=== PATIENT | female | born 1940 | race Caucasian/White ===

== ENCOUNTER 2019-03-02 09:26 | Inpatient (IN) | payer MEDICARE, BC ==
[2019-03-02] MEDS ORDERED: Sodium Chloride 0.9% 10 ML Syringe FLUSH PRN ×2 (10:32→16:50)
--- NOTE | 2019-03-02 11:57 | CRLCR ---
INDICATION: Pneumonia. COMPARISON: 02/28/[address], 02/26/2019 chest x-ray. TECHNIQUE: Two views of the chest. FINDINGS: Patchy right middle lobe and left midlung opacities consistent with pneumonia are similar to prior chest CT accounting for differences in technique. Small right pleural effusion is again noted. No pneumothorax. Cardiomediastinal silhouette is within normal limits. IMPRESSION: Bilateral opacities likely representing pneumonia, similar to prior chest CT. Persistent small right pleural effusion. Dictated by Calixto Pinon MD @ Mar 02 2019 11:47AM Signed by Dr. Calixto Pinon @ Mar 02 2019 11:56AM
[2019-03-02] MEDS ORDERED: Levofloxacin/Dextrose 5%-Water 750 MG in Premix Bag 1 BAG IV ONE (12:01)
--- NOTE | 2019-03-02 12:18 | EDM.PDOC ---
ED HPI GENERAL MEDICAL PROBLEM - General Chief Complaint: Respiratory Problem Stated Complaint: SOB Time Seen by Provider: 03/02/19 10:21 Source of Information: Reports: Patient History Limitations: Reports: Physical Impairment (+++) - History of Present Illness INITIAL COMMENTS - FREE TEXT/NARRATIVE: This lady is here for possible worsening of pneumonia. She was diagnosed on Tuesday at [facility] in [place]. She received an injjection of Rocephin and was put on doxycycline. The following day she had a chest CT that showed a dense right middle lobe infiltrate also infiltrate in the inferior part of the right upper lobe and well as the lingula. Last night she had a fever up to 101.5. She called her doctor today and was told to come into the emergency department since her pneumonia may be getting worse. She's coughing a lot she feels a little bit short of breath and quite anxious. - Related Data Allergies Allergy/AdvReac Type Severity Reaction Status Date / Time atorvastatin [From Lipitor] Allergy Muscle Verified 03/02/19 09:37 Aches erythromycin base Allergy Rash Verified 03/02/19 09:37 morphine Allergy Rash Verified 03/02/19 09:37 nitrofurantoin Allergy Rash Verified 03/02/19 09:37 [From Macrodantin] Penicillins Allergy Rash Verified 03/02/19 09:37 simvastatin [From Zocor] Allergy Muscle Verified 03/02/19 09:37 Aches Sulfa (Sulfonamide Allergy Rash Verified 03/02/19 09:37 Antibiotics) Home Meds: Home Meds Aspirin [Halfprin] 1 tab PO DAILY 03/02/19 [History] Calcium Carbonate/Vitamin D3 [Caltrate 600 Plus D3 Tablet] 1 tab PO DAILY [History] Codeine Phosphate/Guaifenesin [Guaifen-Codeine 100-10 mg/5 ml] 10 ml PO BEDTIME 03/02/19 [History] Doxycycline [Vibramycin] 1 tab PO BID 03/02/19 [History] Estrogens, Conjugated [Premarin Vaginal Crm] 1 applic TOP DAILY PRN 03/02/19 [ History] Fluticasone Propionate [Flonase Allergy Relief] 2 spray DALILA DAILY 03/02/19 [ History] Multivit with Calcium,Iron,Min [One Daily Women's] 1 tab PO DAILY 03/02/19 [ History] Past Medical History HEENT History: Reports: Cataract Respiratory History: Reports: Pneumonia, Recurrent 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: Musculoskeletal History: Reports: RA Oncologic (Cancer) History: Reports: Squamous Cell Carcinoma - Infectious Disease History Infectious Disease History: Reports: Chicken Pox, Measles, Mumps, Pertussis ( Whooping Cough), Shingles - Past Surgical History HEENT Surgical History: Reports: Cataract Surgery, Eye Surgery Female Surgical History: Reports: Hysterectomy, Salpingo-Oophorectomy Musculoskeletal Surgical History: Reports: Knee Replacement Other Musculoskeletal Surgeries/Procedures:: foot fracture, and toe fracture, right knee replacement Social & Family History - Tobacco Use Smoking Status *Q: Never Smoker - Caffeine Use Caffeine Use: Reports: Coffee - Alcohol Use Date of Last Drink: 02/21/19 Time of Last Drink: 20:00 - Recreational Drug Use Recreational Drug Use: No ED ROS GENERAL - Review of Systems Review Of Systems: See Below Constitutional: Reports: Fever, Chills, Weakness HEENT: Reports: No Symptoms Respiratory: Reports: Shortness of Breath, Cough, Sputum Cardiovascular: Reports: No Symptoms Endocrine: Reports: No Symptoms GI/Abdominal: Reports: No Symptoms : Reports: No Symptoms Musculoskeletal: Reports: No Symptoms Skin: Reports: No Symptoms Neurological: Reports: No Symptoms Psychiatric: Reports: No Symptoms ED EXAM, GENERAL - Physical Exam Exam: See Below Exam Limited By: No Limitations General Appearance: Alert, WD/WN, Mild Distress (She is wearing a mask and coughs very frequently) Eye Exam: Bilateral Eye: Normal Inspection Throat/Mouth: Normal Oropharynx Head: Atraumatic Neck: Normal Inspection Respiratory/Chest: No Respiratory Distress, Other (Some decreased breath sounds over the right middle lobe otherwise lungs generally fairly clear) Cardiovascular: Normal Peripheral Pulses, Regular Rate, Rhythm, No Murmur GI/Abdominal: Soft, Non-Tender Back Exam: Normal Inspection Extremities: Normal Inspection Neurological: Alert, Oriented Course - Vital Signs Last Recorded V/S: Last Vital Signs Temp 36.9 C 03/02/19 12:20 Pulse 91 03/02/19 13:31 Resp 18 03/02/19 13:31 BP 167/66 H 03/02/19 13:31 Pulse Ox 93 L 03/02/19 13:31 - Orders/Labs/Meds Orders: Active Orders 24 hr Category Date Time Status Patient Status Manage Transfer [TRANSFER] Routine ADT 03/02/19 13:19 Active CULTURE BLOOD [BC] Urgent Lab 03/02/19 10:45 Received CULTURE BLOOD [BC] Urgent Lab 03/02/19 10:45 Received CULTURE RESPIRATORY + SMEAR [RM] Stat Lab 03/02/19 13:30 Results Sodium Chloride 0.9% [Saline Flush] Med 03/02/19 10:32 Active 10 ml FLUSH ASDIRECTED PRN Blood Culture x2 Reflex Set [OM.PC] Urgent Oth 03/02/19 10:39 Ordered Saline Lock Insert [OM.PC] Urgent Oth 03/02/19 10:37 Ordered Resuscitation Status Routine Resus Stat 03/02/19 13:21 Ordered Medication Orders Sodium Chloride (Saline Flush) 10 ml FLUSH ASDIRECTED PRN PRN Reason: Keep Vein Open Last Admin: 03/02/19 10:51 Dose: 10 ml Labs: Laboratory Tests 03/02/19 03/02/19 03/02/19 Range/Units 10:45 10:45 10:45 WBC 8.6 (4.5-11.0) K/uL RBC 4.17 (3.30-5.50) M/uL Hgb 12.5 (12.0-15.0) g/dL Hct 38.8 (36.0-48.0) % MCV 93 (80-98) fL MCH 30 (27-31) pg MCHC 32 (32-36) % Plt Count 378 (150-400) K/uL Neut % (Auto) 72 H (36-66) % Lymph % (Auto) 13 L (24-44) % [place] % (Auto) 14 H (2-6) % Eos % (Auto) 1 L (2-4) % Baso % (Auto) 0 (0-1) % Sodium 136 L (140-148) mmol/L Potassium 3.7 (3.6-5.2) mmol/L Chloride 101 (100-108) mmol/L Carbon Dioxide 26 (21-32) mmol/L Anion Gap 12.7 (5.0-14.0) mmol/L BUN 9 (7-18) mg/dL Creatinine 0.7 (0.6-1.0) mg/dL Est Cr Clr Drug Dosing 62.15 mL/min Estimated GFR (MDRD) > 60 (>60) Glucose 100 (74-106) mg/dL Lactic Acid 1.6 (0.4-2.0) mmol/L Calcium 9.4 (8.5-10.1) mg/dL Total Bilirubin 0.4 (0.2-1.0) mg/dL AST 34 (15-37) U/L ALT 70 (12-78) U/L Alkaline Phosphatase 71 (46-116) U/L Total Protein 7.3 (6.4-8.2) g/dL Albumin 2.7 L (3.4-5.0) g/dL Globulin 4.6 H (2.3-3.5) g/dL Albumin/Globulin Ratio 0.6 L (1.2-2.2) Meds: Medications Generic Name Dose Route Start Last Admin Trade Name Freq PRN Reason Stop Dose Admin Sodium Chloride 10 ml 03/02/19 10:32 03/02/19 10:51 Saline Flush FLUSH 10 ml ASDIRECTED PRN Administration Keep Vein Open Discontinued Medications Generic Name Dose Route Start Last Admin Trade Name Freq PRN Reason Stop Dose Admin Levofloxacin/Dextrose 750 mg/ 150 mls @ 100 mls/hr 03/02/19 12:01 03/02/19 12 :13 Premix IV 03/02/19 13:30 100 mls/hr ONETIME ONE Administration Meropenem 1 gm/ Sodium 50 mls @ 100 mls/hr 03/02/19 12:30 03/02/19 13:57 Chloride IV 03/02/19 12:59 100 mls/hr ONETIME ONE Administration - Radiology Interpretation Free Text/Narrative:: Radiology report was noted x-rays were compared with the previous x-rays and done earlier this week. No significant progressionCT - Re-Assessments/Exams Free Text/Narrative Re-Assessment/Exam: 03/02/19 16:[address] Hernandez patient received ertapenem 1 g and Levaquin 1 g IV. There was some difficulty finding a room for her but that has been procured and she'll be moved up to [facility] shortly Departure - Departure Time of Disposition: 16:03 Disposition: Admitted As Inpatient 68 Condition: Fair Clinical Impression: Bilateral pneumonia - Discharge Information Referrals: PCP,None [Primary Care Provider] - Forms: ED Department Discharge - My Orders Last 24 Hours: My Active Orders 03/02/19 10:32 Sodium Chloride 0.9% [Saline Flush] 10 ml FLUSH ASDIRECTED PRN 03/02/19 10:37 Saline Lock Insert [OM.PC] Urgent 03/02/19 10:39 Blood Culture x2 Reflex Set [OM.PC] Urgent 03/02/19 10:45 CULTURE BLOOD [BC] Urgent CULTURE BLOOD [BC] Urgent 03/02/19 13:30 CULTURE RESPIRATORY + SMEAR [RM] Stat - Assessment/Plan Last 24 Hours: My Active Orders 03/02/19 10:32 Sodium Chloride 0.9% [Saline Flush] 10 ml FLUSH ASDIRECTED PRN 03/02/19 10:37 Saline Lock Insert [OM.PC] Urgent 03/02/19 10:39 Blood Culture x2 Reflex Set [OM.PC] Urgent 03/02/19 10:45 CULTURE BLOOD [BC] Urgent CULTURE BLOOD [BC] Urgent 03/02/19 13:30 CULTURE RESPIRATORY + SMEAR [RM] Stat
--- NOTE | 2019-03-02 13:25 | PCM.HP.2 ---
H&P History of Present Illness - General Date of Service: 03/02/19 Admit Problem/Dx: Admission Diagnosis/Problem Admission Diagnosis/Problem Pneumonia Source of Information: Patient, Family, Provider, RN Notes Reviewed History Limitations: Reports: No Limitations - History of Present Illness Initial Comments - Free Text/Narative: Ms. Escobar is a 78-year-old woman who was admitted through the emergency department with cough and shortness of breath secondary to bilateral pneumonia. She became sick about a week ago, 4 days ago presented to her primary care physician. Chest x-ray at that time showed evidence of pneumonia. She was given IM Rocephin and started on doxycycline [address] scan was obtained 2 days ago for follow-up and showed evidence of bilateral pneumonia. On initial assessment her white blood cell count was elevated. She presented to the emergency department today because of persistent shortness of breath, cough, and fever. Chest x-ray obtained today shows evidence of bilateral infiltrates, white blood cell count is within normal range. Blood and sputum cultures have been obtained and she is been started on IV levofloxacin and meropenem in the emergency department because of failed outpatient management of pneumonia. - Related Data Allergies/Adverse Reactions: Allergies Allergy/AdvReac Type Severity Reaction Status Date / Time atorvastatin [From Lipitor] Allergy Muscle Verified 03/02/19 09:37 Aches erythromycin base Allergy Rash Verified 03/02/19 09:37 morphine Allergy Rash Verified 03/02/19 09:37 nitrofurantoin Allergy Rash Verified 03/02/19 09:37 [From Macrodantin] Penicillins Allergy Rash Verified 03/02/19 09:37 simvastatin [From Zocor] Allergy Muscle Verified 03/02/19 09:37 Aches Sulfa (Sulfonamide Allergy Rash Verified 03/02/19 09:37 Antibiotics) Home Medications: Home Meds Aspirin [Halfprin] 1 tab PO DAILY 03/02/19 [History] Calcium Carbonate/Vitamin D3 [Caltrate 600 Plus D3 Tablet] 1 tab PO DAILY [History] Codeine Phosphate/Guaifenesin [Guaifen-Codeine 100-10 mg/5 ml] 10 ml PO BEDTIME 03/02/19 [History] Doxycycline [Vibramycin] 1 tab PO BID 03/02/19 [History] Estrogens, Conjugated [Premarin Vaginal Crm] 1 applic TOP DAILY PRN 03/02/19 [ History] Fluticasone Propionate [Flonase Allergy Relief] 2 spray DALILA DAILY 03/02/19 [ History] Multivit with Calcium,Iron,Min [One Daily Women's] 1 tab PO DAILY 03/02/19 [ History] Past Medical History HEENT History: Reports: Cataract Respiratory History: Reports: Pneumonia, Recurrent 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: Musculoskeletal History: Reports: RA Oncologic (Cancer) History: Reports: Squamous Cell Carcinoma - Infectious Disease History Infectious Disease History: Reports: Chicken Pox, Measles, Mumps, Pertussis ( Whooping Cough), Shingles - Past Surgical History HEENT Surgical History: Reports: Cataract Surgery, Eye Surgery Female Surgical History: Reports: Hysterectomy, Salpingo-Oophorectomy Musculoskeletal Surgical History: Reports: Knee Replacement Other Musculoskeletal Surgeries/Procedures:: foot fracture, and toe fracture, right knee replacement Social & Family History - Tobacco Use Smoking Status *Q: Never Smoker - Caffeine Use Caffeine Use: Reports: Coffee - Alcohol Use Date of Last Drink: 02/21/19 Time of Last Drink: 20:00 - Recreational Drug Use Recreational Drug Use: No H&P Review of Systems - Review of Systems: Review Of Systems: See Below General: Reports: Fever, Chills, Malaise, Weakness, Diaphoresis Pulmonary: Reports: Shortness of Breath, Cough, Sputum, Hemoptysis. Denies: Wheezing, Pleuritic Chest Pain Cardiovascular: Reports: Dyspnea on Exertion. Denies: Chest Pain, Palpitations , Orthopnea, PND, Edema, Lightheadedness Gastrointestinal: Reports: No Symptoms Genitourinary: Reports: No Symptoms Musculoskeletal: Reports: No Symptoms Skin: Reports: No Symptoms Psychiatric: Reports: No Symptoms Neurological: Reports: No Symptoms Hematologic/Lymphatic: Reports: No Symptoms Immunologic: Reports: No Symptoms Exam - Exam Exam: See Below - Vital Signs Vital Signs: Last Vital Signs Temp 98.4 F 03/02/19 12:20 Pulse 71 03/02/19 12:20 Resp 20 03/02/19 12:20 BP 147/76 H 03/02/19 12:20 Pulse Ox 95 03/02/19 12:20 Weight: 130 lb - Exam Quality Assessment: DVT Prophylaxis General: Alert, Oriented, Cooperative, Moderate Distress HEENT: Conjunctiva Clear, Hearing Intact, Normal Nasal Septum, Posterior Pharynx Clear, Pupils Equal. No: Mucosa Moist & [place] Neck: Supple, Trachea Midline, +2 Carotid Pulse wo Bruit Lungs: Crackles, Rhonchi. No: Rub, Stridor, Wheezing Cardiovascular: Regular Rate, Regular Rhythm, Normal S1, Normal S2. No: Systolic Murmur, Diastolic Murmur GI/Abdominal Exam: Soft, Non-Tender, No Organomegaly, No Distention Back Exam: Normal Inspection, Full Range of Motion Extremities: Non-Tender, No Pedal Edema Skin: Warm, Dry, Intact Neurological: Cranial Nerves Intact, Strength Equal Bilateral, Normal Speech, Normal Tone, Sensation Intact. No: Focal Deficit Neuro Extensive - Mental Status: Alert, Oriented x3, Normal Mood/Affect, Normal Cognition, Memory Intact - Patient Data Lab Results Last 24 hrs: Laboratory Results - last 24 hr 03/02/19 03/02/19 03/02/19 Range/Units 10:45 10:45 10:45 WBC 8.6 (4.5-11.0) K/uL RBC 4.17 (3.30-5.50) M/uL Hgb 12.5 (12.0-15.0) g/dL Hct 38.8 (36.0-48.0) % MCV 93 (80-98) fL MCH 30 (27-31) pg MCHC 32 (32-36) % Plt Count 378 (150-400) K/uL Neut % (Auto) 72 H (36-66) % Lymph % (Auto) 13 L (24-44) % [place] % (Auto) 14 H (2-6) % Eos % (Auto) 1 L (2-4) % Baso % (Auto) 0 (0-1) % Sodium 136 L (140-148) mmol/L Potassium 3.7 (3.6-5.2) mmol/L Chloride 101 (100-108) mmol/L Carbon Dioxide 26 (21-32) mmol/L Anion Gap 12.7 (5.0-14.0) mmol/L BUN 9 (7-18) mg/dL Creatinine 0.7 (0.6-1.0) mg/dL Est Cr Clr Drug Dosing 62.15 mL/min Estimated GFR (MDRD) > 60 (>60) Glucose 100 (74-106) mg/dL Lactic Acid 1.6 (0.4-2.0) mmol/L Calcium 9.4 (8.5-10.1) mg/dL Total Bilirubin 0.4 (0.2-1.0) mg/dL AST 34 (15-37) U/L ALT 70 (12-78) U/L Alkaline Phosphatase 71 (46-116) U/L Total Protein 7.3 (6.4-8.2) g/dL Albumin 2.7 L (3.4-5.0) g/dL Globulin 4.6 H (2.3-3.5) g/dL Albumin/Globulin Ratio 0.6 L (1.2-2.2) Result Diagrams: 03/02/19 10:45 03/02/19 10:45 *Q Meaningful Use (ADM) - VTE Risk Assess *Q Each Risk Factor Represents 1 Point: None Total Score 1 Point Risk Factors: 0 Each Risk Factor Represents 2 Points: None Total Score 2 Point Risk Factors: 0 Each Risk Factor Represents 3 Points: Age 75 Years or Greater Total Score 3 Point Risk Factors: 3 Each Risk Factor Represents 5 Points: None Total Score 5 Point Risk Factors: 0 Venous Thromboembolism Risk Factor Score *Q: 3 Problem List Initiated/Reviewed/Updated: Yes Orders Last 24hrs: Active Orders 24 hr Category Date Time Status Patient Status Manage Transfer [TRANSFER] Routine ADT 03/02/19 13:19 Ordered CULTURE BLOOD [BC] Urgent Lab 03/02/19 10:45 Received CULTURE BLOOD [BC] Urgent Lab 03/02/19 10:45 Received CULTURE RESPIRATORY + SMEAR [RM] Stat Lab 03/02/19 11:59 Ordered Levofloxacin/Dextrose 5%-Water [Levaquin in D5W 750 MG/ Med 03/02/19 12:01 Active 150 ML] 750 mg Premix Bag 1 bag IV ONETIME Sodium Chloride 0.9% [Saline Flush] Med 03/02/19 10:32 Active 10 ml FLUSH ASDIRECTED PRN Blood Culture x2 Reflex Set [OM.PC] Urgent Oth 03/02/19 10:39 Ordered Saline Lock Insert [OM.PC] Urgent Oth 03/02/19 10:37 Ordered Resuscitation Status Routine Resus Stat 03/02/19 13:21 Ordered Medication Orders Levofloxacin/Dextrose 750 mg/ (Premix) 150 mls @ 100 mls/hr IV ONETIME ONE Stop: 03/02/19 13:30 Last Admin: 03/02/19 12:13 Dose: 100 mls/hr Sodium Chloride (Saline Flush) 10 ml FLUSH ASDIRECTED PRN PRN Reason: Keep Vein Open Last Admin: 03/02/19 10:51 Dose: 10 ml Assessment/Plan Comment:: ASSESSMENT AND PLAN BILATERAL PNEUMONIA-she has failed outpatient management with persistent infiltrates, fever, and cough. -Blood and sputum cultures pending -Supplemental oxygen as needed -Nebulized albuterol as needed -Expanded IV antibiotic coverage because of failed outpatient management; meropenem and levofloxacin, pending culture results MAINTENANCE ISSUES -DVT prophylaxis; Lovenox 40 mg subcutaneous daily -GI prophylaxis; not indicated -Negrete catheter; not indicated -Nutrition; regular diet -Nicotine dependence; not required CODE STATUS-FULL CODE ADMISSION STATUS-patient will be admitted to inpatient status, expect at least a 2 night hospital stay for evaluation and management of problems as outlined above. At the time of this admission I do not reasonably expected evaluation and management of this problem will require more than a 96 hour hospital stay. DISPOSITION-anticipate discharge to home after the hospital stay. PRIMARY CARE PROVIDER-her primary care provider is in the [facility]. - Mortality Measure Prognosis:: Good
[2019-03-02] MEDS ORDERED: Polyethylene Glycol 3350 Powder 17 GM Packet PO PRN (16:50)
[2019-03-02] MEDS ORDERED: Albuterol 0.083% 2.5 MG/3 ML Neb Soln NEB PRN (16:50)
[2019-03-02] MEDS ORDERED: Ondansetron 4 MG/2 ML SDV IV PRN (16:50)
[2019-03-02] MEDS: Acetaminophen 325 MG Tab PO PRN (17:03)
[2019-03-02] MEDS: Lactated Ringers 1,000 ML IV SCH (17:47)
[2019-03-02] MEDS: Enoxaparin 40 MG/0.4 ML Syringe SUBCUT SCH (17:47)
[2019-03-02] MEDS: Codeine/guaiFENesin 100mg-10 MG/5 ML Syrup 10 ML Cup PO PRN (21:19)
[2019-03-02] MEDS: Meropenem 1 GM in Sodium Chloride 0.9% 100 ML IV SCH (21:20)
[2019-03-03] MEDS: Codeine/guaiFENesin 100mg-10 MG/5 ML Syrup 10 ML Cup PO PRN ×3 (01:17→22:06)
[2019-03-03] MEDS: Lactated Ringers 1,000 ML IV SCH ×2 (02:11→11:34)
[2019-03-03] MEDS: Acetaminophen 325 MG Tab PO PRN ×2 (02:13→23:53)
[2019-03-03] MEDS: Meropenem 1 GM in Sodium Chloride 0.9% 100 ML IV SCH ×3 (05:15→22:06)
[2019-03-03] MEDS: Fluticasone Propionate Nasal Spray (PTOM) NASBOTH SCH (08:00)
[2019-03-03] MEDS: Aspirin 81 MG Tab.EC PO SCH (08:05)
[2019-03-03] MEDS ORDERED: Potassium Chloride 20 MEQ Tab.ER PO ONE (09:00)
[2019-03-03] MEDS ORDERED: Fluticasone Propionate Nasal Spray 16 GM Bottle NASBOTH SCH (09:00)
[2019-03-03] MEDS: Levofloxacin/Dextrose 5%-Water 750 MG in Premix Bag 1 BAG IV SCH (11:33)
--- NOTE | 2019-03-03 12:57 | PCM.PN ---
- General Info Date of Service: 03/03/19 Subjective Update: Ms. Escobar has been stable since admission, good oxygenation on room air, only mild temperature elevations. Continues to experience cough, which for the most part has been unproductive. Functional Status: Reports: Tolerating Diet, Ambulating, Urinating - Review of Systems General: Reports: Fever, Weakness. Denies: Chills Pulmonary: Reports: Shortness of Breath, Cough. Denies: Sputum, Hemoptysis, Wheezing Cardiovascular: Reports: Dyspnea on Exertion. Denies: Chest Pain, Palpitations , Orthopnea, PND, Edema, Lightheadedness Gastrointestinal: Reports: No Symptoms - Patient Data Vitals - Most Recent: Last Vital Signs Temp 99.4 F 03/03/19 10:55 Pulse 87 03/03/19 10:55 Resp 18 03/03/19 10:55 BP 154/52 H 03/03/19 10:55 Pulse Ox 95 03/03/19 10:55 Weight - Most Recent: 132 lb 9.6 oz I&O - Last 24 Hours: Intake & Output 03/02/19 03/03/19 03/03/19 22:59 06:59 14:59 Intake Total 460 1619 630 Output Total 1375 900 Balance 460 244 -270 Lab Results Last 24 Hours: Laboratory Results - last 24 hr 03/03/19 03/03/19 Range/Units 05:11 05:11 WBC 8.3 (4.5-11.0) K/uL RBC 4.05 (3.30-5.50) M/uL Hgb 11.9 L (12.0-15.0) g/dL Hct 38.0 (36.0-48.0) % MCV 94 (80-98) fL MCH 29 (27-31) pg MCHC 31 L (32-36) % Plt Count 394 (150-400) K/uL Neut % (Auto) 68 H (36-66) % Lymph % (Auto) 16 L (24-44) % [place] % (Auto) 14 H (2-6) % Eos % (Auto) 2 (2-4) % Baso % (Auto) 0 (0-1) % Sodium 140 (140-148) mmol/L Potassium 3.5 L (3.6-5.2) mmol/L Chloride 104 (100-108) mmol/L Carbon Dioxide 27 (21-32) mmol/L Anion Gap 12.5 (5.0-14.0) mmol/L BUN 9 (7-18) mg/dL Creatinine 0.7 (0.6-1.0) mg/dL Est Cr Clr Drug Dosing 61.52 mL/min Estimated GFR (MDRD) > 60 (>60) Glucose 97 (74-106) mg/dL Calcium 9.4 (8.5-10.1) mg/dL [place] Results Last 24 Hours: Microbiology 03/02/19 10:45 Aerobic Blood Culture - Preliminary Blood - Arm, Right NO GROWTH AFTER 1 DAY Anaerobic Blood Culture - Preliminary NO GROWTH AFTER 1 DAY 03/02/19 10:45 Aerobic Blood Culture - Preliminary Blood - Venous - Iv Start NO GROWTH AFTER 1 DAY Anaerobic Blood Culture - Preliminary NO GROWTH AFTER 1 DAY 03/02/19 13:30 Gram Stain - Final Sputum - Expectorated Med Orders - Current: Current Medications Acetaminophen (Tylenol) 650 mg PO Q4H PRN PRN Reason: Pain (Mild 1-3)/fever Last Admin: 03/03/19 02:13 Dose: 650 mg Albuterol (Proventil Neb Soln) 2.5 mg NEB Q4H PRN PRN Reason: Shortness Of Breath/wheezing Aspirin (Halfprin) 81 mg PO DAILY [facility] Last Admin: 03/03/19 08:05 Dose: Not Given Enoxaparin Sodium (Lovenox) 40 mg SUBCUT Q24H [facility] Last Admin: 03/02/19 17:47 Dose: 40 mg Fluticasone Propionate (Flonase) 0 gm NASBOTH DAILY [facility] Last Admin: 03/03/19 08:00 Dose: 1 spray Guaifenesin/Codeine Phosphate (Robitussin Ac) 10 ml PO Q4H PRN PRN Reason: Cough Last Admin: 03/03/19 05:17 Dose: 10 ml Levofloxacin/Dextrose 750 mg/ (Premix) 150 mls @ 100 mls/hr IV Q24H [facility] Last Admin: 03/03/19 11:33 Dose: 100 mls/hr Meropenem 1 gm/ Sodium (Chloride) 100 mls @ 200 mls/hr IV Q8HR [facility] Last Admin: 03/03/19 05:15 Dose: 200 mls/hr Lactobacillus Rhamnosus (Culturelle) 1 cap PO BID [facility] Ondansetron HCl (Zofran) 4 mg IV Q4H PRN PRN Reason: Nausea/Vomiting Polyethylene Glycol (Miralax) 17 gm PO DAILY PRN PRN Reason: Constipation Sodium Chloride (Saline Flush) 10 ml FLUSH ASDIRECTED PRN PRN Reason: Keep Vein Open Discontinued Medications Fluticasone Propionate (Flonase) 0 gm NASBOTH DAILY [facility] Last Admin: 03/03/19 08:05 Dose: Not Given Levofloxacin/Dextrose 750 mg/ (Premix) 150 mls @ 100 mls/hr IV ONETIME ONE Stop: 03/02/19 13:30 Last Admin: 03/02/19 12:13 Dose: 100 mls/hr Meropenem 1 gm/ Sodium (Chloride) 50 mls @ 100 mls/hr IV ONETIME ONE Stop: 03/02/19 12:59 Last Admin: 03/02/19 13:57 Dose: 100 mls/hr Lactated Ringer's (Ringers, Lactated) 1,000 mls @ 125 mls/hr IV ASDIRECTED [facility] Last Admin: 03/03/19 11:34 Dose: 125 mls/hr Potassium Chloride (Klor-Con M20) 40 meq PO ONETIME ONE Stop: 03/03/19 09:01 Last Admin: 03/03/19 09:09 Dose: 40 meq Sodium Chloride (Saline Flush) 10 ml FLUSH ASDIRECTED PRN PRN Reason: Keep Vein Open Last Admin: 03/02/19 10:51 Dose: 10 ml - Exam Quality Assessment: DVT Prophylaxis. No: Supplemental Oxygen General: Alert, Oriented, Cooperative, Mild Distress Lungs: Normal Respiratory Effort, Crackles, Rhonchi Cardiovascular: Regular Rate, Regular Rhythm, No Murmurs GI/Abdominal Exam: Soft, Non-Tender, No Organomegaly, No Distention Extremities: Non-Tender, No Pedal Edema - Problem List Review Problem List Initiated/Reviewed/Updated: Yes - My Orders Last 24 Hours: My Active Orders 03/02/19 13:21 Resuscitation Status Routine 03/02/19 16:50 Patient Status [ADT] Routine Ambulate [RC] QID Height and Weight [RC] DAILY Intake and Output [RC] QSHIFT Notify Provider Vital Signs [RC] ASDIRECTED Oxygen Therapy [RC] PRN Peripheral IV Care [RC] Q12H Pulse Oximetry [RC] CONTINUOUS RT Aerosol Therapy [RC] ASDIRECTED Up ad [place] [RC] ASDIRECTED Up to Chair [RC] QID Vital Signs [RC] Q4H Acetaminophen [Tylenol] 650 mg PO Q4H PRN Albuterol [Proventil Neb Soln] 2.5 mg NEB Q4H PRN Ondansetron [Zofran] 4 mg IV Q4H PRN Polyethylene Glycol 3350 [MiraLAX] 17 gm PO DAILY PRN Sodium Chloride 0.9% [Saline Flush] 10 ml FLUSH ASDIRECTED PRN Peripheral IV Insertion Adult [OM.PC] Routine 03/02/19 18:00 Enoxaparin [Lovenox] 40 mg SUBCUT Q24H 03/02/19 22:00 Meropenem [Merrem] 1 gm Sodium Chloride 0.9% [Normal Saline] 100 ml IV Q8HR 03/02/19 Lunch Regular Diet [DIET] 03/03/19 09:00 Aspirin [Halfprin] 81 mg PO DAILY 03/03/19 10:00 Fluticasone Propionate [Flonase] 0 gm NASBOTH DAILY 03/03/19 12:00 Levofloxacin/Dextrose 5%-Water [Levaquin in D5W 750 MG/150 ML] 750 mg Premix Bag 1 bag IV Q24H 03/03/19 12:49 POTASSIUM,K [CHEM] Timed Convert IV to Saline Lock [OM.PC] Routine 03/03/19 13:00 Lactobacillus Rhamnosus GG [Culturelle] 1 cap PO BID - Plan Plan:: ASSESSMENT AND PLAN BILATERAL PNEUMONIA-stable since admission, white blood cell count remains within normal range. Only mild temperature elevations noted thus far.Sputum culture Gram stain showing gram-positive cocci, final ID and sensitivities are pending -Blood and sputum cultures pending -Supplemental oxygen as needed -Nebulized albuterol as needed -Expanded IV antibiotic coverage because of failed outpatient management; meropenem and levofloxacin, pending culture results MAINTENANCE ISSUES -DVT prophylaxis; Lovenox 40 mg subcutaneous daily -GI prophylaxis; not indicated -Negrete catheter; not indicated -Nutrition; regular diet -Nicotine dependence; not required CODE STATUS-FULL CODE ADMISSION STATUS-patient will be admitted to inpatient status, expect at least a 2 night hospital stay for evaluation and management of problems as outlined above. At the time of this admission I do not reasonably expected evaluation and management of this problem will require more than a 96 hour hospital stay. DISPOSITION-anticipate discharge to home after the hospital stay. PRIMARY CARE PROVIDER-her primary care provider is in the [facility].
[2019-03-03] MEDS: Lactobacillus Rhamnosus GG (Probiotic) Cap PO SCH ×2 (13:42→22:06)
[2019-03-03] MEDS: Enoxaparin 40 MG/0.4 ML Syringe SUBCUT SCH (18:01)
[2019-03-04] MEDS: Codeine/guaiFENesin 100mg-10 MG/5 ML Syrup 10 ML Cup PO PRN ×2 (03:29→22:12)
[2019-03-04] MEDS: Meropenem 1 GM in Sodium Chloride 0.9% 100 ML IV SCH (05:55)
[2019-03-04] MEDS: Lactobacillus Rhamnosus GG (Probiotic) Cap PO SCH ×2 (08:47→22:08)
[2019-03-04] MEDS: Fluticasone Propionate Nasal Spray (PTOM) NASBOTH SCH (08:47)
[2019-03-04] MEDS: Aspirin 81 MG Tab.EC PO SCH (08:47)
--- NOTE | 2019-03-04 11:55 | PCM.PN ---
- General Info Date of Service: 03/04/19 Subjective Update: Ms. Escobar is shown further improvement since yesterday, less shortness of breath and cough. She is been up and walking in the hallways without any supplemental oxygen. Vital signs have been stable and she has remained afebrile. Her was admitted during the night with a small bowel obstruction and was taken to surgery this morning. Functional Status: Reports: Tolerating Diet, Ambulating, Urinating - Review of Systems General: Reports: Weakness. Denies: Fever, Chills Pulmonary: Reports: Shortness of Breath, Cough. Denies: Sputum, Hemoptysis, Wheezing Cardiovascular: Reports: Dyspnea on Exertion. Denies: Chest Pain, Palpitations , Orthopnea, PND, Edema, Lightheadedness Gastrointestinal: Reports: No Symptoms - Patient Data Vitals - Most Recent: Last Vital Signs Temp 98.9 F 03/04/19 10:38 Pulse 85 03/04/19 10:38 Resp 18 03/04/19 10:38 BP 140/49 L 03/04/19 10:38 Pulse Ox 94 L 03/04/19 10:38 Weight - Most Recent: 131 lb 9.6 oz I&O - Last 24 Hours: Intake & Output 03/03/19 03/04/19 03/04/19 22:59 06:59 14:59 Intake Total 1480 1050 900 Balance 1480 1050 900 Lab Results Last 24 Hours: Laboratory Results - last 24 hr 03/03/19 Range/Units 12:58 Potassium 4.0 (3.6-5.2) mmol/L [place] Results Last 24 Hours: Microbiology 03/02/19 10:45 Aerobic Blood Culture - Preliminary Blood - Venous - Iv Start NO GROWTH AFTER 2 DAYS Anaerobic Blood Culture - Preliminary NO GROWTH AFTER 2 DAYS 03/02/19 10:45 Aerobic Blood Culture - Preliminary Blood - Arm, Right NO GROWTH AFTER 2 DAYS Anaerobic Blood Culture - Preliminary NO GROWTH AFTER 2 DAYS 03/02/19 13:30 Gram Stain - Final Sputum - Expectorated Respiratory Culture - Preliminary Med Orders - Current: Current Medications Acetaminophen (Tylenol) 650 mg PO Q4H PRN PRN Reason: Pain (Mild 1-3)/fever Last Admin: 03/03/19 23:53 Dose: 650 mg Albuterol (Proventil Neb Soln) 2.5 mg NEB Q4H PRN PRN Reason: Shortness Of Breath/wheezing Aspirin (Halfprin) 81 mg PO DAILY [facility] Last Admin: 03/04/19 08:47 Dose: 81 mg Enoxaparin Sodium (Lovenox) 40 mg SUBCUT Q24H [facility] Last Admin: 03/03/19 18:01 Dose: 40 mg Fluticasone Propionate (Flonase) 0 gm NASBOTH DAILY [facility] Last Admin: 03/04/19 08:47 Dose: 1 spray Guaifenesin/Codeine Phosphate (Robitussin Ac) 10 ml PO Q4H PRN PRN Reason: Cough Last Admin: 03/04/19 03:29 Dose: 10 ml Levofloxacin/Dextrose 750 mg/ (Premix) 150 mls @ 100 mls/hr IV Q24H [facility] Last Admin: 03/03/19 11:33 Dose: 100 mls/hr Lactobacillus Rhamnosus (Culturelle) 1 cap PO BID [facility] Last Admin: 03/04/19 08:47 Dose: 1 cap Ondansetron HCl (Zofran) 4 mg IV Q4H PRN PRN Reason: Nausea/Vomiting Polyethylene Glycol (Miralax) 17 gm PO DAILY PRN PRN Reason: Constipation Sodium Chloride (Saline Flush) 10 ml FLUSH ASDIRECTED PRN PRN Reason: Keep Vein Open Discontinued Medications Fluticasone Propionate (Flonase) 0 gm NASBOTH DAILY [facility] Last Admin: 03/03/19 08:05 Dose: Not Given Levofloxacin/Dextrose 750 mg/ (Premix) 150 mls @ 100 mls/hr IV ONETIME ONE Stop: 03/02/19 13:30 Last Admin: 03/02/19 12:13 Dose: 100 mls/hr Meropenem 1 gm/ Sodium (Chloride) 50 mls @ 100 mls/hr IV ONETIME ONE Stop: 03/02/19 12:59 Last Admin: 03/02/19 13:57 Dose: 100 mls/hr Lactated Ringer's (Ringers, Lactated) 1,000 mls @ 125 mls/hr IV ASDIRECTED [facility] Last Admin: 03/03/19 11:34 Dose: 125 mls/hr Meropenem 1 gm/ Sodium (Chloride) 100 mls @ 200 mls/hr IV Q8HR [facility] Last Admin: 03/04/19 05:55 Dose: 200 mls/hr Potassium Chloride (Klor-Con M20) 40 meq PO ONETIME ONE Stop: 03/03/19 09:01 Last Admin: 03/03/19 09:09 Dose: 40 meq Sodium Chloride (Saline Flush) 10 ml FLUSH ASDIRECTED PRN PRN Reason: Keep Vein Open Last Admin: 03/02/19 10:51 Dose: 10 ml - Exam Quality Assessment: DVT Prophylaxis General: Alert, Oriented, Cooperative, Mild Distress Lungs: Clear to Auscultation, Normal Respiratory Effort. No: Crackles, Rales, Rhonchi, Wheezing Cardiovascular: Regular Rate, Regular Rhythm, No Murmurs GI/Abdominal Exam: Soft, Non-Tender, No Organomegaly, No Distention Extremities: Non-Tender, No Pedal Edema - Problem List Review Problem List Initiated/Reviewed/Updated: Yes - My Orders Last 24 Hours: My Active Orders 03/03/19 12:00 Levofloxacin/Dextrose 5%-Water [Levaquin in D5W 750 MG/150 ML] 750 mg Premix Bag 1 bag IV Q24H 03/03/19 12:49 Convert IV to Saline Lock [OM.PC] Routine 03/03/19 13:00 Lactobacillus Rhamnosus GG [Culturelle] 1 cap PO BID - Plan Plan:: ASSESSMENT AND PLAN BILATERAL PNEUMONIA-stable and yesterday, now afebrile 24 hours. Shortness of breath and cough, able to be up and walking in the hallways. Sputum culture growing gram-positive cocci, final ID and sensitivities pending -Blood and sputum cultures pending -Supplemental oxygen as needed -Nebulized albuterol as needed -Continue IV levofloxacin -Discontinue meropenem MAINTENANCE ISSUES -DVT prophylaxis; Lovenox 40 mg subcutaneous daily -GI prophylaxis; not indicated -Negrete catheter; not indicated -Nutrition; regular diet -Nicotine dependence; not required CODE STATUS-FULL CODE ADMISSION STATUS-patient will be admitted to inpatient status, expect at least a 2 night hospital stay for evaluation and management of problems as outlined above. At the time of this admission I do not reasonably expected evaluation and management of this problem will require more than a 96 hour hospital stay. DISPOSITION-anticipate discharge to home after the hospital stay. PRIMARY CARE PROVIDER-her primary care provider is in the [facility].
[2019-03-04] MEDS: Levofloxacin/Dextrose 5%-Water 750 MG in Premix Bag 1 BAG IV SCH (12:22)
[2019-03-04] MEDS: Acetaminophen 325 MG Tab PO PRN (14:48)
[2019-03-04] MEDS ORDERED: Levofloxacin 250 MG Tab PO ONE (15:56)
[2019-03-04] MEDS: Enoxaparin 40 MG/0.4 ML Syringe SUBCUT SCH (18:23)
[2019-03-05] MEDS: Fluticasone Propionate Nasal Spray (PTOM) NASBOTH SCH (08:40)
[2019-03-05] MEDS: Lactobacillus Rhamnosus GG (Probiotic) Cap PO SCH (08:40)
[2019-03-05] MEDS: Aspirin 81 MG Tab.EC PO SCH (08:42)
[2019-03-05] MEDS ORDERED: Levofloxacin 500 MG Tab PO SCH (12:00)
[2019-03-05] MEDS ORDERED: levoFLOXacin 500 MG, levoFLOXacin 250 MG PO SCH ×2 (12:00)
--- NOTE | 2019-03-05 12:37 | PCM.DCSUM1 ---
Discharge Summary - Hospital Course Brief History: 78-year-old female receiving outpatient management for pneumonia who presented with increased fever, cough and shortness of breath. She was admitted for management of bilateral pneumonia that was failing outpatient therapy. Diagnosis: Stroke: No - Discharge Data Discharge Date: 03/05/19 Discharge Disposition: Home, Self-Care 01 Condition: Good - Referral to Home Health Primary Care Physician: PCP None - Discharge Diagnosis/Problem(s) (1) Bilateral pneumonia SNOMED Code(s): 648350866 ICD Code: J18.9 - PNEUMONIA, UNSPECIFIED ORGANISM Status: Acute Qualifiers: Pneumonia type: due to unspecified organism Lung location: unspecified part of lung Qualified Code(s): J18.9 - Pneumonia, unspecified organism (2) Rheumatoid arthritis SNOMED Code(s): 97246138 ICD Code: M06.9 - RHEUMATOID ARTHRITIS, UNSPECIFIED Status: Chronic Qualifiers: Rheumatoid arthritis location: unspecified site Rheumatoid factor presence : unspecified presence Qualified Code(s): M06.9 - Rheumatoid arthritis, unspecified - Patient Summary/Data Hospital Course: Laura presented to the emergency room with fever, cough and shortness of breath that was getting worse despite being on antibiotics for pneumonia. Workup in the emergency room revealed leukocytosis and evidence for persistent infiltrates on the chest x-ray. She was started on levofloxacin and meropenem and admitted to the hospital for further management. Cultures were obtained prior to starting antibiotics. Over the next couple of days in the hospital she made slow but steady improvement in her respiratory status and symptoms. Her cough decreased and her shortness of breath improved. Her strength has been improving. She has been afebrile. She still has a mild cough but it's more loose. Cultures obtained in the emergency room have been negative. Appetite has improved. She was transitioned from 2 antibiotics down to just levofloxacin which was then transition to oral. She has continued to improve and I believe is safe for outpatient management at this time. She will need four additional days of antibiotic therapy with levofloxacin. - Patient Instructions Diet: Regular Diet as Tolerated Activity: As Tolerated Driving: May Drive Today Showering/Bathing: May Shower Notify Provider of: Fever, Increased Pain Other/Special Instructions: 1. Take levofloxacin 750 mg daily at noon for 4 more doses. Your next dose is due tomorrow at noon. 2. Use acetaminophen as needed if you have additional fevers - Discharge Plan *PRESCRIPTION DRUG MONITORING PROGRAM REVIEWED*: Not Applicable *COPY OF PRESCRIPTION DRUG MONITORING REPORT IN PATIENT MARY: Not Applicable Prescriptions/Med Rec: Levofloxacin 750 mg PO ACLUNCH #4 tablet Home Medications: Home Meds Aspirin [Halfprin] 1 tab PO QAM 03/02/19 [History] Calcium Carbonate/Vitamin D3 [Caltrate 600 Plus D3 Tablet] 1 tab PO QAM [History] Codeine Phosphate/Guaifenesin [Guaifen-Codeine 100-10 mg/5 ml] 10 ml PO BEDTIME PRN 03/02/19 [History] Doxycycline [Vibramycin] 1 tab PO BID 03/02/19 [History] Estrogens, Conjugated [Premarin Vaginal Crm] 1 applic TOP WEEKLY 03/02/19 [ History] Fluticasone Propionate [Flonase Allergy Relief] 1 spray DALILA DAILY 03/02/19 [ History] Multivit with Calcium,Iron,Min [One Daily Women's] 1 tab PO QAM 03/02/19 [ History] Levofloxacin 750 mg PO ACLUNCH #4 tablet 03/05/19 [Rx] Oxygen Therapy Mode: Room Air Patient Handouts: Levofloxacin tablets, Community-Acquired Pneumonia, Adult, Community-Acquired Pneumonia, Adult, [id number] Referrals: Gogo Concepcion DO [Ordering Only Provider] - 03/08/19 1:30 pm (Please arrive 15 minutes early to register for appointment.) - Discharge Summary/Plan Comment DC Time >30 min.: No - Patient Data Vitals - Most Recent: Last Vital Signs Temp 37 C 03/04/19 23:00 Pulse 82 03/04/19 23:00 Resp 16 03/05/19 03:00 BP 171/70 H 03/04/19 23:00 Pulse Ox 95 03/04/19 23:00 Weight - Most Recent: 58.876 kg I&O - Last 24 hours: Intake & Output 03/04/19 03/05/19 03/05/19 22:59 06:59 14:59 Intake Total 1700 Balance 1700 LIN Results - Last 24 hrs: Microbiology 03/02/19 10:45 Aerobic Blood Culture - Preliminary Blood - Arm, Right NO GROWTH AFTER 3 DAYS Anaerobic Blood Culture - Preliminary NO GROWTH AFTER 3 DAYS 03/02/19 10:45 Aerobic Blood Culture - Preliminary Blood - Venous - Iv Start NO GROWTH AFTER 3 DAYS Anaerobic Blood Culture - Preliminary NO GROWTH AFTER 3 DAYS 03/02/19 13:30 Gram Stain - Final Sputum - Expectorated Respiratory Culture - Final NORMAL RESPIRATORY ALEKSANDAR 2 DAYS Med Orders - Current: Current Medications Acetaminophen (Tylenol) 650 mg PO Q4H PRN PRN Reason: Pain (Mild 1-3)/fever Last Admin: 03/04/19 14:48 Dose: 650 mg Albuterol (Proventil Neb Soln) 2.5 mg NEB Q4H PRN PRN Reason: Shortness Of Breath/wheezing Aspirin (Halfprin) 81 mg PO DAILY [facility] Last Admin: 03/05/19 08:42 Dose: Not Given Enoxaparin Sodium (Lovenox) 40 mg SUBCUT Q24H [facility] Last Admin: 03/04/19 18:23 Dose: 40 mg Fluticasone Propionate (Flonase) 0 gm NASBOTH DAILY [facility] Last Admin: 03/05/19 08:40 Dose: 1 spray Guaifenesin/Codeine Phosphate (Robitussin Ac) 10 ml PO Q4H PRN PRN Reason: Cough Last Admin: 03/04/19 22:12 Dose: 10 ml Lactobacillus Rhamnosus (Culturelle) 1 cap PO BID [facility] Last Admin: 03/05/19 08:40 Dose: 1 cap Levofloxacin 500 mg/ (Levofloxacin 250 mg) 750 mg PO Q24H [facility] Ondansetron HCl (Zofran) 4 mg IV Q4H PRN PRN Reason: Nausea/Vomiting Polyethylene Glycol (Miralax) 17 gm PO DAILY PRN PRN Reason: Constipation Sodium Chloride (Saline Flush) 10 ml FLUSH ASDIRECTED PRN PRN Reason: Keep Vein Open Discontinued Medications Fluticasone Propionate (Flonase) 0 gm NASBOTH DAILY [facility] Last Admin: 03/03/19 08:05 Dose: Not Given Levofloxacin/Dextrose 750 mg/ (Premix) 150 mls @ 100 mls/hr IV ONETIME ONE Stop: 03/02/19 13:30 Last Admin: 03/02/19 12:13 Dose: 100 mls/hr Meropenem 1 gm/ Sodium (Chloride) 50 mls @ 100 mls/hr IV ONETIME ONE Stop: 03/02/19 12:59 Last Admin: 03/02/19 13:57 Dose: 100 mls/hr Lactated Ringer's (Ringers, Lactated) 1,000 mls @ 125 mls/hr IV ASDIRECTED [facility] Last Admin: 03/03/19 11:34 Dose: 125 mls/hr Levofloxacin/Dextrose 750 mg/ (Premix) 150 mls @ 100 mls/hr IV Q24H [facility] Last Admin: 03/04/19 12:22 Dose: 100 mls/hr Meropenem 1 gm/ Sodium (Chloride) 100 mls @ 200 mls/hr IV Q8HR [facility] Last Admin: 03/04/19 05:55 Dose: 200 mls/hr Levofloxacin (Levaquin) 250 mg PO ONETIME ONE Stop: 03/04/19 15:57 Last Admin: 03/04/19 16:48 Dose: 250 mg Levofloxacin (Levaquin) 750 mg PO Q24H [facility] Potassium Chloride (Klor-Con M20) 40 meq PO ONETIME ONE Stop: 03/03/19 09:01 Last Admin: 03/03/19 09:09 Dose: 40 meq Sodium Chloride (Saline Flush) 10 ml FLUSH ASDIRECTED PRN PRN Reason: Keep Vein Open Last Admin: 03/02/19 10:51 Dose: 10 ml
== END 2019-03-05 15:00 | disposition home or self-care (01) | DRG 195 ==
LOC: JP.ED 09:26 → JP.MS 13:19 → UNDOADMIN 13:19 → JP.MS 16:50 → UNDODISIN 03-05 15:00
PROVIDERS: ADMIT Hospitalist; ATTEND Hospitalist
DX: J18.9 Pneumonia, unspecified organism (principal); R06.02 Shortness of breath; R50.9 Fever, unspecified; R05 Cough; R53.1 Weakness; M06.9 Rheumatoid arthritis, unspecified; Z88.1 Allergy status to other antibiotic agents; Z88.0 Allergy status to penicillin; Z79.82 Long term (current) use of aspirin; Z88.2 Allergy status to sulfonamides; Z90.710 Acquired absence of both cervix and uterus; Z98.49 Cataract extraction status, unspecified eye; Z88.5 Allergy status to narcotic agent; Z85.828 Personal history of other malignant neoplasm of skin; Z88.8 Allergy status to other drugs, medicaments and biological substances; Z79.899 Other long term (current) drug therapy
CPT/HCPCS: 36415; 71046; 80053; 83605; 85025; 87040 ×2; 96365; 99285; J1956; 80048; 84132; 87070; 87205; 94762; 99283; A9270-GY; J1650; J2185; J7030; J7050; J7120

== ENCOUNTER 2022-01-13 19:28 | Emergency (ER) | payer MEDICARE, BC ==
[2022-01-13] MEDS: Bacitracin Oint 1 GM U/D Packet TOP ONE (20:42)
[2022-01-13] MEDS: Lidocaine 1% 5 ML VIAL INJECT ONE (20:42)
== END 2022-01-13 21:11 | disposition home or self-care (01) ==
LOC: JP.ED 19:28
DX: S91.011A Laceration without foreign body, right ankle, initial encounter (principal); Z88.0 Allergy status to penicillin; Z88.2 Allergy status to sulfonamides; Z88.5 Allergy status to narcotic agent; Z88.8 Allergy status to other drugs, medicaments and biological substances; Z79.82 Long term (current) use of aspirin; Z79.899 Other long term (current) drug therapy; W25.XXXA Contact with sharp glass, initial encounter
CPT/HCPCS: 12002; 99282

== ENCOUNTER 2024-01-19 12:47 | Emergency (ER) | payer MEDICARE, BC ==
[2024-01-19] MEDS ORDERED: fentaNYL 50 MCG/ML SDV IVPUSH ONE (13:27)
[2024-01-19] MEDS: Sodium Chloride 0.9% 1,000 ML IV ONE ×2 (13:52→14:49)
[2024-01-19 13:53] LABS: HEMATOCRIT 35.1 % (34.3-46.0); HEMOGLOBIN 11.8 g/dL (11.2-15.5); MEAN CORPUSCULAR HEMOGLOBIN 27.5 pg (31.6-35.5); MEAN CORPUSCULAR HGB CONC 33.6 g/dL (31.6-35.5); MEAN CORPUSCULAR VOLUME 81.8 fL (81.4-99.0); PLATELET COUNT,PLT 204 K/uL (130-375); RED BLOOD CELL COUNT 4.29 M/uL (3.77-5.24); WHITE BLOOD CELL COUNT,WBC 5.5 K/uL (3.2-11.0)
[2024-01-19 14:17] LABS: BAND ABSOLUTE MAN 0.66 K/uL; BAND PERCENT MAN 12 % (5-11); LYMPHOCYTES ABSOLUTE MAN 0.17 K/uL (0.8-3.3); LYMPHOCYTES PERCENT MAN 3 % (24-44); METAMYELOCYTE ABSOLUTE MAN 0.06 K/uL; METAMYELOCYTE PERCENT MAN 1 %; MONOCYTES ABSOLUTE MAN 0.06 K/uL (0.20-0.90); MONOCYTES PERCENT MAN 1 % (2-6); NEUTROPHILS ABSOLUTE MAN 4.57 K/uL (1.0-7.6); SEG NEUTROPHILS PERCENT MAN 83 % (36-66)
[2024-01-19 14:18] LABS: A/G RATIO 0.7 (1.2-2.2); ALANINE AMINOTRANSFERASE,ALT 18 U/L (12-78); ALBUMIN 2.7 g/dL (3.4-5.0); ALKALINE PHOSPHATASE 42 U/L (46-116); ASPARTATE AMNIOTRANSFERASE,AST 17 U/L (15-37); BILIRUBIN TOTAL 0.4 mg/dL (0.2-1.0); BLOOD UREA NITROGEN,BUN 40 mg/dL (7-18); CALCIUM 9.4 mg/dL (8.5-10.1); CARBON DIOXIDE,CO2 17 mmol/L (21-32); CHLORIDE,CL 100 mmol/L (100-108); CREATININE 1.6 mg/dL (0.6-1.0); EST CRCL DRUG DOSING (CG) 22.81 mL/min; ESTIMATED GFR 32 mL/min (>60); GLUCOSE RANDOM 134 mg/dL (74-106); POTASSIUM,K 3.6 mmol/L (3.6-5.2); PROTEIN TOTAL,TP 6.8 g/dL (6.4-8.2); SODIUM,NA 135 mmol/L (140-148)
[2024-01-19 14:21] LABS: ANION GAP 21.6 mmol/L (5.0-14.0)
[2024-01-19 14:22] LABS: LACTIC ACID 1.1 mmol/L (0.4-2.0)
[2024-01-19 14:30] LABS: C-REACTIVE PROTEIN 27.62 mg/dL (<0.50)
[2024-01-19] MEDS: Iopamidol 612 MG/ML 100 ML Bottle IV PRN (15:41)
[2024-01-19] MEDS: Sodium Chloride 0.9% 100 ML IV SCH (15:58)
== END 2024-01-19 17:07 | disposition home or self-care (01) ==
LOC: JP.ED 12:47
DX: K52.9 Noninfective gastroenteritis and colitis, unspecified (principal); I10 Essential (primary) hypertension; E78.00 Pure hypercholesterolemia, unspecified; Z90.710 Acquired absence of both cervix and uterus; Z88.1 Allergy status to other antibiotic agents; Z88.2 Allergy status to sulfonamides; Z88.8 Allergy status to other drugs, medicaments and biological substances; Z88.0 Allergy status to penicillin; Z88.5 Allergy status to narcotic agent; Z79.82 Long term (current) use of aspirin; Z79.899 Other long term (current) drug therapy
CPT/HCPCS: 36415; 74177; 74177-26; 80053; 83605; 84145; 85025; 86140; 87040; 96360; 96361; 99284; 99284-25; J3490; J7030; Q9967

== ENCOUNTER 2024-01-27 22:55 | Emergency (ER) | payer MEDICARE, BC ==
[2024-01-27] MEDS ORDERED: Sodium Chloride 0.9% 1,000 ML IV SCH (23:30)
[2024-01-27] MEDS: HYDROmorphone 0.5 MG/0.5 ML Syringe IVPUSH ONE (23:37)
[2024-01-27] MEDS: Ondansetron 4 MG/2 ML SDV IVPUSH ONE (23:40)
[2024-01-27 23:43] LABS: BASOPHILS ABSOLUTE AUTO 0.04 K/uL (0.00-0.10); BASOPHILS PERCENT AUTO 0.2 % (0.1-1.3); EOSINOPHILS ABSOLUTE AUTO 0.06 K/uL (0.00-0.40); EOSINOPHILS PERCENT AUTO 0.3 % (0.0-5.4); HEMATOCRIT 31.9 % (34.3-46.0); HEMOGLOBIN 10.7 g/dL (11.2-15.5); IMMATURE GRAN ABSOLUTE AUTO 0.23 K/uL (0.00-0.23); IMMATURE GRAN PERCENT AUTO 1.3 % (0.0-0.7); LYMPHOCYTES ABSOLUTE AUTO 1.16 K/uL (0.8-3.3); LYMPHOCYTES PERCENT AUTO 6.6 % (11.4-47.7); MEAN CORPUSCULAR HEMOGLOBIN 27.6 pg (31.6-35.5); MEAN CORPUSCULAR HGB CONC 33.5 g/dL (31.6-35.5); MEAN CORPUSCULAR VOLUME 82.4 fL (81.4-99.0); MONOCYTES ABSOLUTE AUTO 0.85 K/uL (0.20-0.90); MONOCYTES PERCENT AUTO 4.8 % (3.3-12.6); NEUTROPHILS ABSOLUTE AUTO 15.19 K/uL (1.0-7.6); NEUTROPHILS PERCENT AUTO 86.8 % (40.0-78.1); PLATELET COUNT,PLT 488 K/uL (130-375); RED BLOOD CELL COUNT 3.87 M/uL (3.77-5.24); WHITE BLOOD CELL COUNT,WBC 17.5 K/uL (3.2-11.0)
[2024-01-28 00:05] LABS: A/G RATIO 0.7 (1.2-2.2); ALANINE AMINOTRANSFERASE,ALT 23 U/L (12-78); ALBUMIN 2.8 g/dL (3.4-5.0); ALKALINE PHOSPHATASE 35 U/L (46-116); ASPARTATE AMNIOTRANSFERASE,AST 15 U/L (15-37); BILIRUBIN TOTAL 0.4 mg/dL (0.2-1.0); BLOOD UREA NITROGEN,BUN 19 mg/dL (7-18); CARBON DIOXIDE,CO2 27 mmol/L (21-32); CHLORIDE,CL 103 mmol/L (100-108); EST CRCL DRUG DOSING (CG) 37.61 mL/min; ESTIMATED GFR 57 mL/min (>60); GLUCOSE RANDOM 96 mg/dL (74-106); POTASSIUM,K 3.4 mmol/L (3.6-5.2); PROTEIN TOTAL,TP 6.8 g/dL (6.4-8.2); SODIUM,NA 139 mmol/L (140-148)
[2024-01-28 00:06] LABS: ANION GAP 12.4 mmol/L (5.0-14.0)
[2024-01-28] MEDS: HYDROmorphone 0.5 MG/0.5 ML Syringe IVPUSH ONE (00:13)
[2024-01-28] MEDS: Sodium Chloride 0.9% 10 ML Syringe FLUSH PRN (00:26)
[2024-01-28] MEDS: Iopamidol 612 MG/ML 100 ML Bottle IV PRN (00:26)
[2024-01-28] MEDS: Sodium Chloride 0.9% 80 ML IV SCH (00:26)
[2024-01-28 01:14] LABS: LACTIC ACID 1.8 mmol/L (0.4-2.0)
== END 2024-01-28 02:45 | disposition home or self-care (01) ==
LOC: JP.ED 22:55
DX: K59.00 Constipation, unspecified (principal); I10 Essential (primary) hypertension; Z90.710 Acquired absence of both cervix and uterus; Z79.82 Long term (current) use of aspirin; Z79.51 Long term (current) use of inhaled steroids; Z79.899 Other long term (current) drug therapy; Z88.8 Allergy status to other drugs, medicaments and biological substances; Z88.0 Allergy status to penicillin; Z88.2 Allergy status to sulfonamides; Z88.1 Allergy status to other antibiotic agents; Z88.5 Allergy status to narcotic agent
CPT/HCPCS: 36415; 74177; 80053; 83605; 83690; 85025; 96374; 96375; 96376; 99284; J1170; J2405; J3490; Q9967

== ENCOUNTER 2024-02-03 12:01 | Inpatient (IN) | payer MEDICARE, BC ==
[2024-02-03] MEDS ORDERED: HYDROmorphone 0.5 MG/0.5 ML Syringe IVPUSH PRN (16:54)
[2024-02-03] MEDS ORDERED: Sennosides/Docusate Sodium 50-8.6 MG Tab PO PRN (16:54)
[2024-02-03] MEDS ORDERED: Ondansetron 4 MG/2 ML SDV IV PRN (16:54)
[2024-02-03] MEDS ORDERED: Magnesium Hydroxide 400 MG/5 ML Susp 30 ML Cup PO PRN (16:54)
[2024-02-03] MEDS ORDERED: traMADol 50 MG Tab PO PRN (16:55)
[2024-02-03] MEDS: cefTRIAXone 1 GM in Sodium Chloride 0.9% 50 ML IV SCH (18:00)
[2024-02-03] MEDS: Potassium Chloride 20 MEQ Tab.ER PO ONE (18:00)
[2024-02-03] MEDS: Sodium Chloride 0.9% 1,000 ML IV SCH (18:01)
[2024-02-03] MEDS: metroNIDAZOLE/Normal Saline 500 MG in Premix Bag 1 BAG IV SCH (18:34)
[2024-02-03] MEDS ORDERED: Pantoprazole 40 MG Tab.CR PO SCH (21:00)
[2024-02-03] MEDS: hydrALAZINE 25 MG Tab PO SCH (21:46)
[2024-02-03] MEDS: Pantoprazole 40 MG Tab.CR PO SCH (21:47)
[2024-02-03] MEDS: Acetaminophen 325 MG Tab PO PRN (21:47)
[2024-02-03] MEDS: Lactobacillus Rhamnosus GG (Probiotic) Cap PO SCH (21:47)
[2024-02-03] MEDS: Losartan 50 MG Tab PO SCH (21:48)
[2024-02-04 04:46] LABS: HEMATOCRIT 26.3 % (34.3-46.0); HEMOGLOBIN 8.4 g/dL (11.2-15.5); MEAN CORPUSCULAR HEMOGLOBIN 26.6 pg (31.6-35.5); MEAN CORPUSCULAR HGB CONC 31.9 g/dL (31.6-35.5); MEAN CORPUSCULAR VOLUME 83.2 fL (81.4-99.0); RED BLOOD CELL COUNT 3.16 M/uL (3.77-5.24); WHITE BLOOD CELL COUNT,WBC 5.5 K/uL (3.2-11.0)
[2024-02-04 05:21] LABS: IRON,FE 16 ug/dL (50-170); PERCENT FE SATURATION 9 % (20-55); TOTAL IRON BINDING CAPACITY 176 ug/dl (250-450)
[2024-02-04 05:31] LABS: ALANINE AMINOTRANSFERASE,ALT 15 U/L (12-78); ALBUMIN 2.2 g/dL (3.4-5.0); ALKALINE PHOSPHATASE 27 U/L (46-116); ASPARTATE AMNIOTRANSFERASE,AST 9 U/L (15-37); BILIRUBIN TOTAL 0.4 mg/dL (0.2-1.0); BLOOD UREA NITROGEN,BUN 7 mg/dL (7-18); CALCIUM 8.5 mg/dL (8.5-10.1); CARBON DIOXIDE,CO2 28 mmol/L (21-32); CHLORIDE,CL 108 mmol/L (100-108); CREATININE 0.9 mg/dL (0.6-1.0); EST CRCL DRUG DOSING (CG) 41.32 mL/min; ESTIMATED GFR 64 mL/min (>60); FERRITIN 147 ng/ml (8-388); GLUCOSE RANDOM 88 mg/dL (74-106); POTASSIUM,K 3.5 mmol/L (3.6-5.2); PROTEIN TOTAL,TP 5.6 g/dL (6.4-8.2); SODIUM,NA 142 mmol/L (140-148)
[2024-02-04 05:39] LABS: A/G RATIO 0.7 (1.2-2.2); ANION GAP 9.5 mmol/L (5.0-14.0)
[2024-02-04] MEDS ORDERED: Losartan 50 MG Tab PO SCH (09:00)
[2024-02-04] MEDS: Cetirizine 10 MG Tab PO SCH (09:42)
[2024-02-04] MEDS: Aspirin 81 MG Tab.EC PO SCH (09:42)
[2024-02-04] MEDS: predniSONE 1 MG Tab PO SCH (09:42)
[2024-02-04] MEDS: Potassium Chloride 20 MEQ Tab.ER PO ONE (09:42)
[2024-02-04] MEDS: predniSONE 5 MG Tab PO SCH (09:43)
[2024-02-04] MEDS ORDERED: Sodium Chloride 0.9% 1,000 ML IV SCH (12:15)
[2024-02-04] MEDS: Sodium Ferric Gluconate Cmplex 250 MG in Sodium Chloride 0.9% 100 ML IV SCH (13:14)
[2024-02-06 06:25] LABS: HEMATOCRIT 27.8 % (34.3-46.0); HEMOGLOBIN 9.2 g/dL (11.2-15.5); MEAN CORPUSCULAR HEMOGLOBIN 27.4 pg (31.6-35.5); MEAN CORPUSCULAR HGB CONC 33.1 g/dL (31.6-35.5); MEAN CORPUSCULAR VOLUME 82.7 fL (81.4-99.0); RED BLOOD CELL COUNT 3.36 M/uL (3.77-5.24); WHITE BLOOD CELL COUNT,WBC 7.8 K/uL (3.2-11.0)
[2024-02-06 06:46] LABS: A/G RATIO 0.7 (1.2-2.2); ALANINE AMINOTRANSFERASE,ALT 15 U/L (12-78); ALBUMIN 2.5 g/dL (3.4-5.0); ALKALINE PHOSPHATASE 33 U/L (46-116); ASPARTATE AMNIOTRANSFERASE,AST 10 U/L (15-37); BILIRUBIN TOTAL 0.3 mg/dL (0.2-1.0); BLOOD UREA NITROGEN,BUN 8 mg/dL (7-18); C-REACTIVE PROTEIN 10.23 mg/dL (<0.50); CARBON DIOXIDE,CO2 27 mmol/L (21-32); CHLORIDE,CL 103 mmol/L (100-108); CREATININE 0.9 mg/dL (0.6-1.0); EST CRCL DRUG DOSING (CG) 41.32 mL/min; ESTIMATED GFR 64 mL/min (>60); GLUCOSE RANDOM 94 mg/dL (74-106); POTASSIUM,K 3.4 mmol/L (3.6-5.2); PROTEIN TOTAL,TP 6.1 g/dL (6.4-8.2); SODIUM,NA 139 mmol/L (140-148)
[2024-02-06 06:48] LABS: ANION GAP 12.4 mmol/L (5.0-14.0)
[2024-02-06] MEDS ORDERED: Propofol 200 MG/20 ML SDV ONE (09:05)
[2024-02-06] MEDS: Potassium Chloride 10 MEQ in Premix Bag 1 BAG IV SCH (11:54)
[2024-02-06] MEDS: Ondansetron 4 MG Tab.DIS PO PRN (13:47)
[2024-02-07 05:17] LABS: HEMOGLOBIN 9.1 g/dL (11.2-15.5); MEAN CORPUSCULAR HEMOGLOBIN 26.8 pg (31.6-35.5); MEAN CORPUSCULAR HGB CONC 31.4 g/dL (31.6-35.5); MEAN CORPUSCULAR VOLUME 85.3 fL (81.4-99.0); RED BLOOD CELL COUNT 3.4 M/uL (3.77-5.24); WHITE BLOOD CELL COUNT,WBC 7.3 K/uL (3.2-11.0)
[2024-02-07 05:53] LABS: A/G RATIO 0.7 (1.2-2.2); ALANINE AMINOTRANSFERASE,ALT 14 U/L (12-78); ALBUMIN 2.5 g/dL (3.4-5.0); ALKALINE PHOSPHATASE 32 U/L (46-116); ASPARTATE AMNIOTRANSFERASE,AST 9 U/L (15-37); BILIRUBIN TOTAL 0.3 mg/dL (0.2-1.0); BLOOD UREA NITROGEN,BUN 14 mg/dL (7-18); CALCIUM 9.8 mg/dL (8.5-10.1); CARBON DIOXIDE,CO2 26 mmol/L (21-32); CHLORIDE,CL 102 mmol/L (100-108); CREATININE 0.9 mg/dL (0.6-1.0); EST CRCL DRUG DOSING (CG) 41.32 mL/min; ESTIMATED GFR 64 mL/min (>60); GLUCOSE RANDOM 85 mg/dL (74-106); POTASSIUM,K 3.7 mmol/L (3.6-5.2); PROTEIN TOTAL,TP 6.3 g/dL (6.4-8.2); SODIUM,NA 138 mmol/L (140-148)
[2024-02-07 05:55] LABS: ANION GAP 13.7 mmol/L (5.0-14.0)
[2024-02-07] MEDS: Iopamidol 612 MG/ML 100 ML Bottle IV STA (06:06)
[2024-02-07] MEDS: Sodium Chloride 0.9% 80 ML IV STA (06:06)
[2024-02-07] MEDS: Iopamidol 612 MG/ML 30 ML SDV PO STA (06:06)
[2024-02-07] MEDS: predniSONE 1 MG Tab PO SCH (09:09)
== END 2024-02-08 12:05 | disposition home or self-care (01) | DRG 392 ==
LOC: JP.MS 12:01 → OBSVTOIN 02-04 12:01
PROVIDERS: ADMIT Internal Medicine; ATTEND Hospitalist
PROC: 0DB48ZX Excision of Esophagogastric Junction, Via Natural or Artificial Opening Endoscopic, Diagnostic (ICD-10-PCS; principal; 2024-02-06 09:30)
DX: R10.13 Epigastric pain (principal); T47.1X5A Adverse effect of other antacids and anti-gastric-secretion drugs, initial encounter; T50.995A Adverse effect of other drugs, medicaments and biological substances, initial encounter; E87.6 Hypokalemia; E78.00 Pure hypercholesterolemia, unspecified; I10 Essential (primary) hypertension; M06.9 Rheumatoid arthritis, unspecified; D50.9 Iron deficiency anemia, unspecified; Z88.1 Allergy status to other antibiotic agents; Z88.0 Allergy status to penicillin; Z88.2 Allergy status to sulfonamides; Z88.5 Allergy status to narcotic agent; Z88.8 Allergy status to other drugs, medicaments and biological substances; Z79.82 Long term (current) use of aspirin; Z79.899 Other long term (current) drug therapy; Z87.01 Personal history of pneumonia (recurrent); Z98.49 Cataract extraction status, unspecified eye; Z98.890 Other specified postprocedural states; Z90.49 Acquired absence of other specified parts of digestive tract; Z90.722 Acquired absence of ovaries, bilateral; Z90.79 Acquired absence of other genital organ(s)
CPT/HCPCS: 00731-QZ; 36415; 74177; 74177-26; 76705; 78227; 80053; 82728; 83550; 83690; 83735; 85018; 85027; 86140; 88305; 96361; 96365; 96366; 96367; 99222; 99231; 99232; 99238; A9270-GY; G0378; J0696; J1836; J2704; J2916; J3480; J3490; J7030; J7512; Q0162; Q9967

== ENCOUNTER 2024-03-01 11:34 | Emergency (ER) | payer MEDICARE, BC ==
[2024-03-01 12:13] VITALS: BP 136/40; PULSE 77
[2024-03-01 12:37] LABS: BASE EXCESS VENOUS -3.8 mm/L; BASOPHILS PERCENT AUTO 0.2 % (0.1-1.3); BICARBONATE,VENOUS 18.7 mmol/L; CARBOXYHEMOGLOBIN 2.8 % (0.0-1.6); EOSINOPHILS ABSOLUTE AUTO 0.03 K/uL (0.00-0.40); EOSINOPHILS PERCENT AUTO 0.3 % (0.0-5.4); HEMATOCRIT 30.2 % (34.3-46.0); HEMOGLOBIN 9.9 g/dL (11.2-15.5); IMMATURE GRAN ABSOLUTE AUTO 0.16 K/uL (0.00-0.23); IMMATURE GRAN PERCENT AUTO 1.7 % (0.0-0.7); LYMPHOCYTES ABSOLUTE AUTO 0.55 K/uL (0.8-3.3); LYMPHOCYTES PERCENT AUTO 5.8 % (11.4-47.7); MEAN CORPUSCULAR HGB CONC 32.8 g/dL (31.6-35.5); MEAN CORPUSCULAR VOLUME 82.3 fL (81.4-99.0); METHEMOGLOBIN 0.7 %; MONOCYTES ABSOLUTE AUTO 0.37 K/uL (0.20-0.90); MONOCYTES PERCENT AUTO 3.9 % (3.3-12.6); NEUTROPHILS ABSOLUTE AUTO 8.32 K/uL (1.0-7.6); NEUTROPHILS PERCENT AUTO 88.1 % (40.0-78.1); O2 SATURATION VENOUS 64.2; PCO2 VENOUS 27.1 mm/Hg; PH,VENOUS 7.453 (7.350-7.450); PLATELET COUNT,PLT 371 K/uL (130-375); RED BLOOD CELL COUNT 3.67 M/uL (3.77-5.24); TOTAL HEMOGLOBIN 10.4 g/dL (12.0-16.0); WHITE BLOOD CELL COUNT,WBC 9.5 K/uL (3.2-11.0)
[2024-03-01 12:44] LABS: BASOPHILS ABSOLUTE AUTO 0.02 K/uL (0.00-0.10); PO2 VENOUS 36.5 mm/Hg
[2024-03-01 13:04] LABS: CARBON DIOXIDE,CO2 22 mmol/L (21-32); CHLORIDE,CL 101 mmol/L (100-108); POTASSIUM,K 4.4 mmol/L (3.6-5.2); SODIUM,NA 133 mmol/L (140-148)
[2024-03-01 13:05] LABS: A/G RATIO 0.6 (1.2-2.2); ALANINE AMINOTRANSFERASE,ALT 28 U/L (12-78); ALBUMIN 2.7 g/dL (3.4-5.0); ALKALINE PHOSPHATASE 39 U/L (46-116); ASPARTATE AMNIOTRANSFERASE,AST 15 U/L (15-37); BILIRUBIN TOTAL 0.4 mg/dL (0.2-1.0); BLOOD UREA NITROGEN,BUN 46 mg/dL (7-18); CALCIUM 9.8 mg/dL (8.5-10.1); CREATININE 0.9 mg/dL (0.6-1.0); EST CRCL DRUG DOSING (CG) 38.97 mL/min; ESTIMATED GFR 64 mL/min (>60); GLUCOSE RANDOM 121 mg/dL (74-106); PRO B-TYPE NATRIUR PEPT,BNPPRO 336 pg/mL (5-450); PROTEIN TOTAL,TP 7.4 g/dL (6.4-8.2)
[2024-03-01 13:06] LABS: ANION GAP 14.4 mmol/L (5.0-14.0)
[2024-03-01 13:35] LABS: CORONAVIRUS COVID-19 NAA NEGATIVE (NEGATIVE); INFLUENZA A NAA NEGATIVE (NEGATIVE); INFLUENZA B NAA NEGATIVE (NEGATIVE); RESPIRATORY SYNCYTIAL VIR NAA NEGATIVE (NEGATIVE)
[2024-03-01] MEDS: Sodium Chloride 0.9% 100 ML IV SCH (15:15)
[2024-03-01] MEDS: Iopamidol 755 Mg/ML 100 ML Bottle IV SCH (15:15)
== END 2024-03-01 17:00 | disposition home or self-care (01) ==
LOC: JP.ED 11:34
DX: F41.9 Anxiety disorder, unspecified (principal); R06.4 Hyperventilation; I10 Essential (primary) hypertension; M19.90 Unspecified osteoarthritis, unspecified site; Z79.82 Long term (current) use of aspirin; Z79.899 Other long term (current) drug therapy; Z88.0 Allergy status to penicillin; Z88.1 Allergy status to other antibiotic agents; Z88.5 Allergy status to narcotic agent; Z88.2 Allergy status to sulfonamides; Z88.8 Allergy status to other drugs, medicaments and biological substances
CPT/HCPCS: 0241U; 36415; 71046; 71046-26; 71275; 71275-26; 80053; 82803; 83605; 83880; 84145; 84484; 85025; 85379; 93005; 99285; J3490; Q9967